=== PATIENT | female | born 1950 | race Caucasian/White ===

== ENCOUNTER 2018-03-02 10:05 | Inpatient (IN) | payer OTHER, MEDICAID ==
[~2018-03-02] VITALS: Ht 157.5 cm; Wt 68.9 kg
[2018-03-02] MEDS ORDERED: ASPIRIN 81MG TABLET PO ONE (11:00)
[2018-03-02] MEDS: NITROGLYCERIN 0.4MG TABLET SL SL PRN ×2 (11:02→16:41)
[2018-03-02 11:29] LABS: CLARITY URINE CLEAR (CLEAR); COLOR URINE YELLOW (YELLOW); KETONES URINE NEGATIVE (NEGATIVE); LEUKOCYTE ESTERASE URINE TRACE (NEGATIVE); NITRITE URINE NEGATIVE (NEGATIVE); OCCULT BLOOD URINE NEGATIVE (NEGATIVE); PROTEIN URINE NEGATIVE (NEGATIVE); SPECIFIC GRAVITY URINE 1.007 (1.005-1.030); UROBILINOGEN URINE 0.2 E.U./dL (0.2-1.0)
[2018-03-02 11:44] LABS: BASOPHILS % 1.2 % (0.0-2.0); EOSINOPHILS % 3.8 % (0.0-5.0); HEMATOCRIT. 38.3 % (36.0-48.0); LYMPHOCYTES % 34.8 % (20.0-50.0); MEAN CORPUSCULAR HEMOGLOBIN 28.5 pg (28.0-32.0); MEAN CORPUSCULAR VOLUME 83.9 fL (81.0-99.0); MEAN PLATELET VOLUME 7.9 fl (7.4-10.4); NEUTROPHILS % 46.2 % (40.0-76.0); PLATELET 310 x1000/uL (130-400); RED BLOOD CELL COUNT 4.56 mill/uL (4.2-5.4); RED CELL DISTRIBUTION WIDTH 14.3 % (11.6-14.6)
[2018-03-02 11:52] LABS: CHLORIDE 107 mEq/L (98-107)
[2018-03-02 12:08] LABS: D-DIMER 0.98 mg/L FEU (<0.50); PARTIAL THROMBOPLASTIN TIME 26.7 sec (23.4-31.0); PROTHROMBIN TIME 10.1 sec (9.1-11.1)
[2018-03-02] MEDS ORDERED: OMEPRAZOLE 20MG CAPSULE EXTENDED RELEASE PO SCH (14:30)
[2018-03-02] MEDS ORDERED: ONDANSETRON HCL 4MG/2ML INJ IV PRN (14:30)
[2018-03-02] MEDS ORDERED: POTASSIUM CHLORIDE 20MEQ TABLET SR PO PRN (14:30)
[2018-03-02] MEDS ORDERED: CLONIDINE 0.1MG TABLET PO PRN (14:30)
[2018-03-02] MEDS ORDERED: IOHEXOL-350 100 ML BOTTLE ONE (14:51)
[2018-03-02] MEDS ORDERED: ATOR40TA70 MT (16:28)
[2018-03-02] MEDS ORDERED: METO-396 MT (16:28)
[2018-03-02] MEDS ORDERED: GABA-529 MT (16:28)
[2018-03-02] MEDS ORDERED: TRAMADOL 50MG TABLET PO PRN (17:00)
[2018-03-02] MEDS ORDERED: ACETAMINOPHEN 325MG TABLET PO PRN (17:00)
[2018-03-02] MEDS: ACETAMINOPHEN 325MG TABLET PO PRN (17:08)
[2018-03-02] MEDS: GABAPENTIN 100MG CAPSULE PO SCH (18:15)
[2018-03-02 19:06] VITALS: BP 110/68
[2018-03-02 20:00] VITALS: BP 114/70
[2018-03-02] MEDS: AMLODIPINE 5MG TABLET PO SCH (21:18)
[2018-03-03] VITALS (7 sets, daily range): BP systolic 99–142; BP diastolic 64–88
[2018-03-03] MEDS: ACETAMINOPHEN 325MG TABLET PO PRN (04:01)
[2018-03-03 06:54] LABS: BASOPHILS % 0.8 % (0.0-2.0); EOSINOPHILS % 5.1 % (0.0-5.0); HEMATOCRIT. 40.4 % (36.0-48.0); HEMOGLOBIN. 13.4 g/dL (12.0-16.0); LYMPHOCYTES % 37.1 % (20.0-50.0); MEAN CORPUSCULAR HEMOGLOBIN 27.9 pg (28.0-32.0); MEAN CORPUSCULAR VOLUME 84.3 fL (81.0-99.0); MEAN PLATELET VOLUME 7.7 fl (7.4-10.4); MONOCYTES % 14.1 % (2.0-8.0); NEUTROPHILS % 42.9 % (40.0-76.0); PLATELET 302 x1000/uL (130-400); RED CELL DISTRIBUTION WIDTH 14.5 % (11.6-14.6)
[2018-03-03 07:18] LABS: CHLORIDE 105 mEq/L (98-107)
[2018-03-03 07:29] LABS: HDL CHOLESTEROL 74 mg/dL (40-59); LDL CHOLESTEROL 119 mg/dL (5-100)
[2018-03-03] MEDS: AMLODIPINE 5MG TABLET PO SCH (08:50)
[2018-03-03] MEDS: GABAPENTIN 100MG CAPSULE PO SCH (08:50)
[2018-03-03] MEDS ORDERED: ENOXAPARIN 40MG/0.4ML SYR SUBCUT SCH (09:00)
[2018-03-03] MEDS ORDERED: METOPROLOL TARTRATE 25MG TABLET PO SCH (09:15)
[2018-03-03] MEDS ORDERED: OMEP20CA10 MT (14:10)
[2018-03-03] MEDS ORDERED: ATORVASTATIN CALCIUM 40MG TABLET PO SCH (21:00)
[2018-03-04] MEDS ORDERED: FAMOTIDINE 20MG TABLET PO SCH (09:00)
== END 2018-03-03 16:47 | disposition home or self-care (01) | DRG 392 ==
LOC: ER 11:11 → EDBD 11:11 → 6WST 14:39 → EDBEDREQ 14:55 → ENRESERV 14:59 → 7WST 03-03 06:45
PROVIDERS: ADMIT Emergency Medicine; ATTEND Emergency Medicine
DX: A08.4 Viral intestinal infection, unspecified (principal); E78.00 Pure hypercholesterolemia, unspecified; E78.5 Hyperlipidemia, unspecified; G89.29 Other chronic pain; I10 Essential (primary) hypertension; R07.89 Other chest pain; M51.16 Intervertebral disc disorders with radiculopathy, lumbar region; R79.1 Abnormal coagulation profile; Z90.49 Acquired absence of other specified parts of digestive tract; Z79.899 Other long term (current) drug therapy
CPT/HCPCS: 36415; 71045; 71275; 80048; 80061; 83036; 83735; 83880; 84484; 85379; 93005; 93306; 99285; J1650; Q9967